=== PATIENT | male | born 1960 | race Two or more races ===

== ENCOUNTER 2023-04-14 08:04 | Outpatient (CLI) | payer OTHER | END 2023-04-14 08:20 | disposition home or self-care (01) | LOC: RAD 08:04 | PROVIDERS: ATTEND Internal Medicine Gastroenterology | DX: D64.9 Anemia, unspecified (principal); R19.5 Other fecal abnormalities; R09.89 Other specified symptoms and signs involving the circulatory and respiratory systems; I25.2 Old myocardial infarction; Z79.02 Long term (current) use of antithrombotics/antiplatelets ==